=== PATIENT | female | born 1980 | race African-American/Black ===

== ENCOUNTER 2017-10-19 07:55 | Day surgery (SDC) | payer OTHER ==
[2017-10-16 14:24] LABS: Absolute Lymphocytes (CBC) 2.3 K/uL (0.7-4.9); Absolute Monocytes 0.5 K/uL (0.1-1.3); Absolute Neutrophil 5.6 K/uL (1.8-8.0); Basophils % 0.7 % (0-1.3); Eosinophils % 1.6 % (0-4.4); Lymphocytes % 26.7 % (15.3-44.8); MCH 28.1 pg (27.0-35.0); MPV 8.4 fL (7.6-11.3); Monocytes % 6.1 % (3.3-12.3); RBC Red Blood Cell Count 4.54 M/uL (3.86-4.86)
[2017-10-16 15:27] LABS: Urine Appearance CLEAR; Urine Bilirubin NEGATIVE (NEG); Urine Blood NEGATIVE (NEG); Urine Color YELLOW; Urine Glucose NEGATIVE (NEG); Urine Protein NEGATIVE (NEG); Urine Specific Gravity 1.025 (1.005-1.030)
[2017-10-16 15:40] LABS: Urine Microscopic Reflex ORDER UMIC
[2017-10-16 15:43] LABS: Urine Bacteria >50 /HPF (<20); Urine Culture Reflex Order NOT NEEDED; Urine RBC <5 /HPF (NONE SEEN)
[2017-10-19 08:20] LABS: Specific Gravity >= 1.030 (1.005-1.030)
[2017-10-19] MEDS ORDERED: Ringers Lactate 1,000 ML IV ONE (08:47)
[2017-10-19] MEDS ORDERED: SCOPOLAMINE HYDROBROMIDE PATCH TD ONE (08:47)
[2017-10-19] MEDS ORDERED: PROPOFOL 200 MG/20 ML VIAL IV ONE (08:54)
[2017-10-19] MEDS ORDERED: LIDOCAINE 2% MPF 5 ML VIAL ONE (08:55)
[2017-10-19] MEDS ORDERED: GLYCOPYRROLATE 0.2 MG/ML SYR ONE (08:55)
[2017-10-19] MEDS ORDERED: FENTANYL CITR 100 MCG/2 ML ONE ×2 (08:56→10:38)
[2017-10-19] MEDS ORDERED: ONDANSETRON HCL 40 MG/20 ML VIAL ONE (08:58)
[2017-10-19] MEDS ORDERED: DEXAMETHASONE 10 MG/ML VIAL ONE (08:59)
[2017-10-19] MEDS ORDERED: ROCURONIUM 50 MG/5 ML VIAL IV ONE (08:59)
[2017-10-19] MEDS ORDERED: NEOSTIGMINE 1 MG/ML -5 ML SYRINGE ONE (08:59)
[2017-10-19] MEDS ORDERED: MIDAZOLAM HCL 2 MG/2 ML INJ ONE (09:34)
[2017-10-19] MEDS: Ringers Lactate 1,000 ML IV ONE ×3 (11:08→11:55)
[2017-10-19] MEDS ORDERED: METHYLENE BLUE 0.5% 10 ML AMP ONE (11:39)
[2017-10-19] MEDS ORDERED: KETOROLAC 30 MG/ML INJ ONE (11:42)
[2017-10-19] MEDS: MEPERIDINE HCL 25 MG/0.5 ML ONE ×2 (12:29→12:39)
[2017-10-19] MEDS ORDERED: HYDROCODONE/APAP 5/325 MG TAB ONE (13:49)
--- NOTE | 2017-10-19 18:24 | OP ---
Date of Procedure: 10/19/2017 Surgeon: Deidra Mayfield MD Informatics Application Analyst: Josette Jauregui. Preoperative Diagnoses: Pelvic pain, deep dyspareunia, menorrhagia. Postoperative Diagnoses: Pelvic pain, deep dyspareunia, menorrhagia, and bilateral dense tubo-ovaria n adhesions, possible bilateral hydrosalpinges, possible endometriosis implants, and omental adhesion s. Anesthesia: General endotracheal. Procedures Performed: 1.Diagnostic hysteroscopy, dilation and curettage. 2.Laparoscopy, bilateral salpingo-ovarian lysis, followed by bilateral salpingectomy, lysis of oment al adhesions, and left uterosacral peritoneal biopsy. Specimens: Bilateral periovarian adhesions, bilateral tubes, and peritoneal biopsy of the left utero sacral. Complications: No complications. Drains: No drains. Condition: The patient is stable. Findings: Dense perihepatic adhesions at the top part of the liver and then dense bilateral tubal an d ovarian adhesions, most of the ovarian adhesions were to the lateral wall and almost an encapsulate d wall here. This was all taken down and the ovary appeared to be unremarkable. There were bilatera l simple follicular physiological appearing cysts. Possible endometriosis, left uterosacral, at the level of the peritoneum in the distal attachment of the uterosacral. This was excised. No need for uterine suspension due to the presence of all this pathology. Procedure In Detail: After informed consent was verified, patient was taken back to the OR, placed i n a supine fashion on the operating table. After general anesthesia was given, she was placed in keiko tavon lithotomy position. A pelvic exam was performed. Uterus retroflexed and large, about 8-10 weeks size. No adnexal masses. Abdomen, vulva, vagina, and perineum were prepped and draped in a sterile fashion. Chew was placed to drain the bladder. The cervix was exposed with a speculum. A bivalve speculum anterior lip grasp ed with 2 Allis clamps. Direct hysteroscopy through the cervical canal into the uterine cavity showe d a thick endometrium. Both tubal ostia were visualized. No intracavitary lesions. Scope removed, D and C done, and specimen handed out, and a diagnostic VCare introduced. This area was then draped. A 1 cm infraumbilical incision was made with a scalpel. The fascia was incised, tagged, and peritone um entered bluntly and S retractors placed, used to place the Rohit. Site of entry showed a lot of omental adhesions in multiple layers in the center and to the left lower quadrant. These were dense, and so I had to place a right lower quadrant and suprapubic ports first, 5 mm ports were placed here . Then using cold scissors, push spread technique, some of the adhesions were taken down. Then, a 5 mm LigaSure was used to take down the rest of the adhesions by creating windows and taking them down , all the left lower quadrant and lower midline adhesions were taken down. The liver and the appendi x were visualized and normal; unremarkable. The patient was placed in T-mervin, left lower quadrant 5 port was placed. The periovarian and tubal adhesions were taken down first on the left side. They w ere very dense and had a complete capsule around, so these were taken down sharply. Then, all the ad hesions were carefully excised from their distal attachment to the sidewall and their proximal attach ment to the ovary. The tubo-ovarian adhesions were also taken down, and then both the tubes bilatera lly appeared to be distended, so we went ahead and took down the entire left tube first with the help of the LigaSure, placed in the cul-de-sac, opposite side of the tubal and ovarian adhesions were als o systematically taken down, excised from the sidewall after visualizing the course of the ureter and staying intraperitoneal, and then, rest of the adhesions were in many layers and all of these once t hey were taken, the ovary was released. The tube was released as well from the ovaries and the tube was taken down with the help of the LigaSure. This was placed in the anterior cul-de-sac as well. T hen, once all the adhesions were excised, the possible peritoneal implant was picked up with the help of [place] pickups and then access the monopolar needle. All the specimens were pulled out through the umbilical port. Thorough irrigation and suction were performed. Interceed was cut in half and placed on both sides to prevent further adhesions . There was no reason for uterine suspen cecilia, so this was not done. Thorough irrigation and suction of the pelvic cavity were performed. Al l the pedicles were checked. The omentum was checked. No evidence of any bleeding. All the trocars were removed under direct vision. Chew and VCare were removed. The fascia was closed over the umb ilicus with a 0 Vicryl in a [id number] fashion, simple 0 Vicryl stitch in the subcutaneous tissu es, and 4-0 Monocryl, interrupted closure for all 4 incisions. Instrument, needle, and sponge counts were correct at the end of the case. The patient tolerated the procedure well. She will follow up with us in 1 week. ALANA/SANDRA Voice ID: [id number] Report ID: [id number]
== END 2017-10-19 14:15 | disposition home or self-care (01) ==
LOC: OR 07:55
PROVIDERS: ATTEND Obstetrics & Gynecology
PROC: 0UJD8ZZ Inspection of Uterus and Cervix, Via Natural or Artificial Opening Endoscopic (ICD-10-PCS; 2017-10-19)
PROC: 0UDB7ZX Extraction of Endometrium, Via Natural or Artificial Opening, Diagnostic (ICD-10-PCS; 2017-10-19)
PROC: 0DNU4ZZ Release Omentum, Percutaneous Endoscopic Approach (ICD-10-PCS; 2017-10-19)
PROC: 0UN24ZZ Release Bilateral Ovaries, Percutaneous Endoscopic Approach (ICD-10-PCS; 2017-10-19)
PROC: 0DNW4ZZ Release Peritoneum, Percutaneous Endoscopic Approach (ICD-10-PCS; 2017-10-19)
PROC: 0UN74ZZ Release Bilateral Fallopian Tubes, Percutaneous Endoscopic Approach (ICD-10-PCS; 2017-10-19)
PROC: 0UT74ZZ Resection of Bilateral Fallopian Tubes, Percutaneous Endoscopic Approach (ICD-10-PCS; 2017-10-19)
PROC: 0WBN4ZX Excision of Female Perineum, Percutaneous Endoscopic Approach, Diagnostic (ICD-10-PCS; 2017-10-19)
PROC: 0UJ88ZZ Inspection of Fallopian Tube, Via Natural or Artificial Opening Endoscopic (ICD-10-PCS; principal; 2017-10-19 10:00)
DX: R10.2 Pelvic and perineal pain (principal); N94.12 Deep dyspareunia; Z80.41 Family history of malignant neoplasm of ovary; N92.6 Irregular menstruation, unspecified; I10 Essential (primary) hypertension; N92.0 Excessive and frequent menstruation with regular cycle; N73.6 Female pelvic peritoneal adhesions (postinfective)
CPT/HCPCS: 36415; 81003; 81015; 81025; 85025; 86850; 86900; 86901; 88302; 88305; J1100; J2175; J2250; J2405; J2710; J3010